=== PATIENT | female | born 1985 | race Caucasian/White ===

== ENCOUNTER 2024-05-13 17:55 | Emergency (ER) | payer OTHER ==
[2024-05-13 18:50] LABS: Absolute Basophils 0.1 K/uL (0-0.5); Absolute Eosinophils 0.3 K/uL (0-0.5); Absolute Lymphocytes (CBC) 2.3 K/uL (0.7-4.9); Absolute Monocytes 0.6 K/uL (0.1-1.3); Absolute Neutrophil 5.7 K/uL (1.8-8.0); Basophils % 0.6 % (0-1.3); Eosinophils % 2.9 % (0-4.4); Hematocrit 39.7 % (36.0-45.0); Hemoglobin 13.2 g/dL (12.0-15.0); Lymphocytes % 25.5 % (15.3-44.8); MCH 28.3 pg (27.0-35.0); MCHC 33.1 g/dL (32.0-36.0); MCV 85.5 fL (80-100); MPV 8.8 fL (7.6-11.3); Monocytes % 6.3 % (3.3-12.3); Neutrophils % 64.7 % (41.7-73.7); Platelets 311 thou/uL (152-406); RBC Red Blood Cell Count 4.64 M/uL (3.86-4.86)
--- NOTE | 2024-05-13 18:53 | RAD REPORT ---
EXAMINATION: Abdomen Exam Limited CLINICAL HISTORY: [facility] MAIN N ruq abd pain Bed Name: 6 COMPARISON: None. TECHNIQUE: Limited upper abdominal grayscale and color flow sonographic images. FINDINGS: Gallbladder: Dependently layering calculi near the neck. Bile ducts: No intrahepatic or extrahepatic biliary dilatation. Common bile duct measures 2 mm. Liver: Visualized portions of the liver demonstrate normal echogenicity with no suspicious findings. Fluid: No ascites. IMPRESSION: No abnormalities on right upper quadrant ultrasound.
[2024-05-13 19:03] LABS: Albumin 3.5 g/dL (3.4-5.0); Albumin/Globulin Ratio 0.9 (1.1-1.8); Anion Gap 7.8 mEq/L (5.0-15.0); Bilirubin Total 0.3 mg/dL (0.2-1.0); Globulin 3.9 g/dL (2.3-3.5); Potassium 3.8 mEq/L (3.5-5.1); Protein, Total 7.4 g/dL (6.4-8.2)
[2024-05-13 21:19] LABS: Urine Bacteria <20 /HPF (<20); Urine Bilirubin NEGATIVE (Negative); Urine Blood Negative (Negative); Urine Clarity Extremely Turbid (Clear); Urine Color Light-Yellow (Yellow); Urine Culture Reflex Order NOT NEEDED; Urine Glucose NEGATIVE (Negative); Urine Ketones NEGATIVE (Negative); Urine Microscopic Reflex YN ORDER UMIC; Urine Mucus 3+ /HPF (None Seen); Urine Nitrite NEGATIVE (Negative); Urine Protein NEGATIVE (Negative); Urine RBC <5 /HPF (None Seen); Urine Urobilinogen Normal (Normal); Urine WBC <5 /HPF (<5)
--- NOTE | 2024-05-13 22:35 | RAD REPORT ---
EXAMINATION: CT Abdomen Pelvis W Contrast CLINICAL INDICATION: Female, 39 years old. upper abd pain TECHNIQUE: CT abdomen and pelvis was performed, after the administration of IV contrast, as [facility]. Axial, sagittal and coronal reconstructions were obtained. One or more of the following dose reduction techniques were used: Automated exposure control, adjustment of the mA and k V according to patient size, and iterative reconstruction. Unless otherwise specified, incidental findings do not require dedicated imaging follow-up. COMPARISON: Abdominal ultrasound the same day FINDINGS: LOWER CHEST: The visualized lung bases are clear. LIVER: Normal in size and contour. No focal lesion. BILIARY SYSTEM: Small gallstones. SPLEEN: Normal size. No focal lesion. PANCREAS: No mass, ductal dilation, or aarti-pancreatic fluid. ADRENALS: Normal; no mass. KIDNEYS: Normal size and contour. No hydronephrosis. URINARY BLADDER: Unremarkable. GASTROINTESTINAL TRACT: No evidence of free air, significant intra-abdominal free fluid, bowel obstru ction or abscess. APPENDIX: Normal appendix. LYMPH NODES: No lymphadenopathy. MUSCULOSKELETAL: No acute or suspicious osseous abnormality. ADDITIONAL FINDINGS: Small inguinal hernia containing fat. IMPRESSION: Cholelithiasis. No other acute or concerning abnormalities seen in the abdomen or pelvis.
[2024-05-13] MEDS ORDERED: PANTOPRAZOLE 40MG TABLET PO ONE (22:51)
--- NOTE | 2024-05-13 22:59 | ER ---
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 patient reports her pain is currently an 8/10 on the pain scale. Coronavirus screen: At this time, the client does not indicate any symptoms associated with coronavirus-19. Ebola Screen: No symptoms or risks identified at this time. Initial Sepsis Screen: Does the patient meet any 2 criteria? No. Patient's initial sepsis screen is negative. Does the patient have a suspected source of infection? No. Patient's initial sepsis screen is negative. Risk Assessment: Do you want to hurt yourself or someone else? Patient reports no desire to harm self or others. Onset of symptoms was May 13, 2024 at 16:30. 18:02 Method Of Arrival: Ambulatory ap3 18:02 Acuity: AVERY 3 ap3 Triage Assessment: 18:04 General: Appears uncomfortable, Behavior is calm, cooperative, appropriate for age. ap3 Pain: Complains of pain in right upper quadrant and left upper quadrant Pain currently is 8 out of 10 on a pain scale. Neuro: Level of Consciousness is awake, alert, obeys commands, Oriented to person, place, time, situation, Appropriate for age. Cardiovascular: Patient's skin is warm and dry. Respiratory: Airway is patent Respiratory effort is even, unlabored, Respiratory pattern is regular, symmetrical. GI: Reports upper abdominal pain, nausea. 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 Flu vaccine is not up to date. - Infectious Disease History:: Denies. - Social history:: Smoking status: Patient denies any tobacco usage or history of. Screenin:05 [facility] ED Fall Risk Assessment (Adult) History of falling in the last 3 months, ap3 including since admission No falls in past 3 months (0 pts) Confusion or Disorientation No (0 pts) Intoxicated or Sedated No (0 pts) Impaired Gait No (0 pts) Mobility Assist Device Used No (0 pt) Altered Elimination No (0 pt) Score/Fall Risk Level 0 - 2 = Low Risk Oriented to surroundings, Maintained a safe environment, Educated pt \T\ family on fall prevention, incl call for assistance when getting out of bed, Assessed \T\ reinforced patient's understanding of fall precautions, Hourly rounding (assess needs \T\ fall precautionary measures) done, Used ambulatory aids as needed (educated on \T\ assisted with), Used gait belt as appropriate. Abuse screen: Denies threats or abuse. Nutritional screening: No deficits noted. Tuberculosis screening: No symptoms or risk factors identified. Assessment: 18:28 General: Appears in no apparent distress. uncomfortable, Behavior is cooperative, hb restless. Pain: Pain currently is 9 out of 10 on a pain scale. Neuro: Level of Consciousness is awake, alert, obeys commands, Oriented to person, place, time, situation. Cardiovascular: Patient's skin is warm and dry. Respiratory: Respiratory effort is even, unlabored, Respiratory pattern is regular, symmetrical. GI: Reports upper abdominal pain. : No signs and/or symptoms were reported regarding the genitourinary system. EENT: No signs and/or symptoms were reported regarding the EENT system. Derm: Skin is pink, warm \T\ dry. Musculoskeletal: No signs and/or symptoms reported regarding the musculoskeletal system. 20:40 General: Appears in no apparent distress. Behavior is calm, cooperative. Pain: Denies al5 pain. Neuro: Level of Consciousness is awake, alert, obeys commands. Cardiovascular: Capillary refill < 3 seconds Patient's skin is warm and dry. Respiratory: Airway is patent Respiratory effort is even, unlabored, Respiratory pattern is regular, symmetrical. GI: No signs and/or symptoms were reported involving the gastrointestinal system. : No signs and/or symptoms were reported regarding the genitourinary system. EENT: No signs and/or symptoms were reported regarding the EENT system. EENT: No signs and/or symptoms were reported regarding the EENT system. Derm: Skin is intact, Skin is pink, warm \T\ dry. normal. Musculoskeletal: No signs and/or symptoms reported regarding the musculoskeletal system. 21:30 Reassessment: Patient appears in no apparent distress at this time. No changes from al5 previously documented assessment. Patient and/or family updated on plan of care and expected duration. Pain level reassessed. Patient is alert, oriented x 3, equal unlabored respirations, skin warm/dry/pink. 22:56 Reassessment: Patient appears in no apparent distress at this time. No changes from al5 previously documented assessment. Patient and/or family updated on plan of care and expected duration. Pain level reassessed. Patient is alert, oriented x 3, equal unlabored respirations, skin warm/dry/pink. Vital Signs: 18:02 BP 148 / 81; Pulse 73; Resp 19; Temp 98.8; Pulse Ox 99% ; Weight 72.57 kg; Height 5 ft. ap3 2 in. ; Pain 8/10; 18:28 BP 119 / 79; Pulse 65; Resp 15; Pulse Ox 99% on R/A; Pain 9/10; hb 19:00 BP 114 / 78; Pulse 68; Resp 16; Pulse Ox 99% on R/A; al5 19:30 BP 118 / 77; Pulse 62; Resp 18; Pulse Ox 99% on R/A; al5 20:00 BP 114 / 76; Pulse 64; Resp 18; Pulse Ox 98% on R/A; al5 20:30 BP 120 / 83; Pulse 61; Resp 18; Pulse Ox 98% on R/A; al5 21:00 BP 122 / 84; Pulse 63; Resp 18; Pulse Ox 99% on R/A; al5 21:30 BP 109 / 78; Pulse 63; Resp 18; Pulse Ox 96% on R/A; al5 22:56 BP 125 / 83; Pulse 64; Resp 18; Pulse Ox 100% on R/A; al5 18:02 Body Mass Index 29.26 (72.57 kg, 157.48 cm) ap3 18:02 Pain Scale: Adult ap3 18:28 Pain Scale: Adult hb ED Course: 17:57 Patient arrived in ED. mg5 18:03 Triage completed. ap3 18:03 Titi Cook MD is Attending Physician. ec2 18:05 Arm band placed on left wrist. ap3 18:07 Dary, Kam, RN is Primary Nurse. bp 18:24 Initial lab(s) drawn, by me, by EMS personnel. Inserted saline lock: 20 gauge in right hb antecubital area, using aseptic technique. Blood collected. Flushed with 10 mL NS. 18:28 Patient has correct armband on for positive identification. Bed in low position. Call hb light in reach. Provided Education on: tests, result times, medications, use of call light. Client placed on continuous cardiac and pulse oximetry monitoring. NIBP monitoring applied. Pulse ox on. NIBP on. 18:45 US Abdomen Limited In Process Unspecified. EDMS 20:06 Attending Physician role handed off by Titi Cook MD ec2 20:06 Brett Jaimes MD is Attending Physician. ec2 20:23 Radiology exam delayed due to test not completed at this time. nj 21:08 No provider procedures requiring assistance completed. al5 21:13 Primary Nurse role handed off by Kam Foote, ANDI al5 21:13 Jessica Pearce RN is Primary Nurse. al5 21:18 Radiology exam delayed due to test not completed at this time. nj 22:03 CT Abd/Pelvis - IV Contrast Only In Process Unspecified. EDMS 22:56 Landon Warner MD is Referral Physician. sp4 23:26 IV discontinued, intact, bleeding controlled, No redness/swelling at site. Pressure al5 dressing applied. Administered Medications: 18:27 Drug: TORadol - Ketorolac IVP 15 mg IVP once Route: IVP; Site: right antecubital; hb 19:02 Follow up: Response: No adverse reaction hb 18:27 Drug: Ondansetron IVP 4 mg IVP once; over 2 minutes Route: IVP; Site: right antecubital;hb 19:02 Follow up: Response: No adverse reaction hb 18:27 Drug: morphine IVP or IV 4 mg IVP once over 4 mins Route: IVP; Infused Over: 4 mins; hb Site: right antecubital; 19:02 Follow up: Response: No adverse reaction hb 18:27 Drug: NS 0.9% IV 1000 ml IV at 1 bolus Per protocol; to be given as a bolus over 60 hb minutes Route: IV; Rate: 1 bolus; Site: right antecubital; 21:05 Follow up: Response: No adverse reaction; IV Status: Completed infusion; IV Intake: al5 1000ml 22:55 Drug: Pantoprazole PO 40 mg PO once Route: PO; al5 23:27 Follow up: Response: No adverse reaction al5 Medication: 18:28 VIS not applicable for this client. hb Intake: 21:05 IV: 1000ml; Total: 1000ml. al5 Outcome: 22:58 Discharge ordered by . sp4 23:26 Discharged to home ambulatory, with family, al5 23:26 Condition: good 23:26 Discharge instructions given to patient, Instructed on discharge instructions, follow up and referral plans. medication usage, Demonstrated understanding of instructions, follow-up care, medications, Prescriptions given X 1, 23:26 Patient left the ED. al5 Signatures: Dispatcher [employer] EDIla Dixon, RN Stan Johnson Brian, RN RN bp Prokisch, Amanda, RN RN ap3 Brett Jaimes MD MD sp4 Tyesha Armenta [facility] Titi Cook MD MD 2 Jessica Pearce RN RN al5 Corrections: (The following items were deleted from the chart) 18:04 18:03 PSHx: None; ap3 ap3
--- NOTE | 2024-05-13 22:59 | EDPHYS ---
Physician Documentation [facility] Name: Makenzie Díaz Age: 39 yrs Sex: Female : 1985 Arrival Date: 05/13/2024 Time: 17:55 Bed 6 Private MD: ED Physician Brett Jaimes HPI: 05/13 18:10 This 39 yrs old Female presents to ER via Ambulatory with complaints of ec2 Abdominal Pain. 18:10 Patient arrives today for evaluation of upper abdominal pain. Patient reports that she ec2 has been experiencing upper abdominal pain since earlier this afternoon, states that it occurred shortly after eating. Reports some associated nausea. Reports history of similar episodes. Reports no urinary complaints. . 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 Flu vaccine is not up to date. - Infectious Disease History:: Denies. - Social history:: Smoking status: Patient denies any tobacco usage or history of. ROS: 18:10 Constitutional: as per hpi ec2 Exam: 18:10 Constitutional: GEN: NAD Head: atraumatic Eyes: EOMI Ears: External ears are ec2 normal. CV: regular rate LUNGS: no respiratory distress ABD: non-distended, soft, tender in the epigastrium SKIN: no evidence of rashes MSK: no evidence of trauma Vital Signs: 18:02 BP 148 / 81; Pulse 73; Resp 19; Temp 98.8; Pulse Ox 99% ; Weight 72.57 kg; Height 5 ft. ap3 2 in. ; Pain 8/10; 18:28 BP 119 / 79; Pulse 65; Resp 15; Pulse Ox 99% on R/A; Pain 9/10; hb 19:00 BP 114 / 78; Pulse 68; Resp 16; Pulse Ox 99% on R/A; al5 19:30 BP 118 / 77; Pulse 62; Resp 18; Pulse Ox 99% on R/A; al5 20:00 BP 114 / 76; Pulse 64; Resp 18; Pulse Ox 98% on R/A; al5 20:30 BP 120 / 83; Pulse 61; Resp 18; Pulse Ox 98% on R/A; al5 21:00 BP 122 / 84; Pulse 63; Resp 18; Pulse Ox 99% on R/A; al5 21:30 BP 109 / 78; Pulse 63; Resp 18; Pulse Ox 96% on R/A; al5 22:56 BP 125 / 83; Pulse 64; Resp 18; Pulse Ox 100% on R/A; al5 18:02 Body Mass Index 29.26 (72.57 kg, 157.48 cm) ap3 18:02 Pain Scale: Adult ap3 18:28 Pain Scale: Adult hb MDM: 18:04 Medical Screening Exam initiated ec2 18:11 Data reviewed: vital signs. ED course: Patient arrives today for evaluation of ec2 abdominal pain shortly after eating. Examination remarkable for abdominal findings as noted above. Will obtain lab work, ultrasound, treat the patient's symptoms reassess. Differential diagnose include processes such as cholelithiasis, cholecystitis, urinary tract infection. 19:19 ED course: On reassessment patient with improvement in symptoms. Pending urine studies ec2 and CT imaging.. 21:07 ED course: EXAMINATION: Abdomen Exam Limited CLINICAL HISTORY: [facility] MAIN N ruq abd pain sp4 Bed Name: 6 COMPARISON: None. TECHNIQUE: Limited upper abdominal grayscale and color flow sonographic images. FINDINGS: Gallbladder: Dependently layering calculi near the neck. Bile ducts: No intrahepatic or extrahepatic biliary dilatation. Common bile duct measures 2 mm. Liver: Visualized portions of the liver demonstrate normal echogenicity with no suspicious findings. Fluid: No ascites. IMPRESSION: No abnormalities on right upper quadrant ultrasound. 22:41 ED course: EXAMINATION: CTAbdomen Pelvis W Contrast CLINICAL INDICATION: Female, 39 sp4 years old. upper abd pain TECHNIQUE: CT abdomen and pelvis was performed, after the administration of IV contrast, as per department protocol. Axial, sagittal and coronal reconstructions were obtained. One or more of the following dose reduction techniques were used: Automated exposure control, adjustment of the mA and kV according to patient size, and iterative reconstruction. Unless otherwise specified, incidental findings do not require dedicated imaging follow-up. COMPARISON: Abdominal ultrasound the same day FINDINGS: LOWER CHEST: The visualized lung bases are clear. LIVER: Normal in size and contour. No focal lesion. BILIARYSYSTEM: Small gallstones. SPLEEN: Normal size. No focal lesion. PANCREAS: No mass, ductal dilation, or aarti-pancreatic fluid. ADRENALS: Normal; no mass. KIDNEYS: Normal size and contour. No hydronephrosis. URINARYBLADDER: Unremarkable. GASTROINTESTINAL TRACT: No evidence of free air, significant intra-abdominal free fluid, bowel obstruction or abscess. APPENDIX: Normal appendix. LYMPH NODES: No lymphadenopathy. MUSCULOSKELETAL: No acute or suspicious osseous abnormality. ADDITIONAL FINDINGS: Small inguinal hernia containing fat. IMPRESSION: Cholelithiasis. No other acute or concerning abnormalities seen in the abdomen or pelvis. . 05/13 18:07 Order name: CBC with Diff; Complete Time: 18:57 ec2 05/13 18:07 Order name: CMP; Complete Time: 19:19 ec2 05/13 18:07 Order name: Lipase; Complete Time: 19:19 ec2 05/13 18:07 Order name: Test, Urine; Complete Time: 21:22 ec2 05/13 18:07 Order name: Urinalysis w/ reflexes; Complete Time: 21:22 ec2 05/13 18:07 Order name: US Abdomen Limited; Complete Time: 22:38 ec2 05/13 18:58 Order name: CT Abd/Pelvis - IV Contrast Only; Complete Time: 22:38 ec2 05/13 18:07 Order name: IV Saline Lock; Complete Time: 18:27 ec2 05/13 18:07 Order name: Labs collected and sent; Complete Time: 18:27 ec2 Administered Medications: 18:27 Drug: TORadol - Ketorolac IVP 15 mg IVP once Route: IVP; Site: right antecubital; hb 19:02 Follow up: Response: No adverse reaction hb 18:27 Drug: Ondansetron IVP 4 mg IVP once; over 2 minutes Route: IVP; Site: right antecubital;hb 19:02 Follow up: Response: No adverse reaction hb 18:27 Drug: morphine IVP or IV 4 mg IVP once over 4 mins Route: IVP; Infused Over: 4 mins; hb Site: right antecubital; 19:02 Follow up: Response: No adverse reaction hb 18:27 Drug: NS 0.9% IV 1000 ml IV at 1 bolus Per protocol; to be given as a bolus over 60 hb minutes Route: IV; Rate: 1 bolus; Site: right antecubital; 21:05 Follow up: Response: No adverse reaction; IV Status: Completed infusion; IV Intake: al5 1000ml 22:55 Drug: Pantoprazole PO 40 mg PO once Route: PO; al5 23:27 Follow up: Response: No adverse reaction al5 Disposition Summary: 05/13/24 22:58 Discharge Ordered Problem: new sp4 Symptoms: have improved sp4 Condition: Stable sp4 Diagnosis - Epigastric pain sp4 - Suspecte Peptic Ulcer Disease, Gallbladder disease, Cholelithiasis without sp4 cholecystitis , Post prandial abdominal pain Followup: sp4 - With: Landon Warner MD - When: 7 - 10 days - Reason: Recheck today's complaints Discharge Instructions: - Discharge Summary Sheet sp4 - Abdominal Pain, Adult sp4 Forms: - Patient Portal Instructions sp4 Prescriptions: - Protonix 40 mg Oral Tablet - take 1 tablet ORAL route once daily; 30 tablet; Refills: 0, Product Selection sp4 Permitted Signatures: Dispatcher [employer] Ila Jaime RN RN hb Prokisch, Amanda, RN RN ap3 Brett Jaimes MD MD sp4 Titi Cook MD MD ec2 Jessica Pearce RN RN al5 Corrections: (The following items were deleted from the chart) 18:04 18:03 PSHx: None; ap3 ap3 18:08 18:08 CBC+H.LAB.BRZ ordered. EDMS EDMS 18:08 18:08 COMPREHENSIVE METABOLIC PANEL+C.LAB.BRZ ordered. EDMS EDMS 18:08 18:08 LIPASE+C.LAB.BRZ ordered. EDMS EDMS 18:08 18:08 Test, Urine+UC.LAB.BRZ ordered. EDMS EDMS 18:08 18:08 Urinalysis+U.LAB.BRZ ordered. EDMS EDMS
[2024-05-14 06:09] VITALS: TEMP 98.8
[2024-05-14 06:32] VITALS: BP 125/83; O2SAT 100
== END 2024-05-13 23:26 | disposition home or self-care (01) ==
LOC: ER 17:55
DX: K80.20 Calculus of gallbladder without cholecystitis without obstruction (principal)
CPT/HCPCS: 85025; 81001; 36415; 81025; 83690; 80053; 74177; 76705; Q9967; 96361; 96374; 96375; 99284